=== PATIENT | female | born 1935 | race Caucasian/White ===

== ENCOUNTER 2018-03-08 14:24 | Inpatient (IN) | payer MEDICARE, MEDICAID ==
[~2018-03-08] VITALS: Ht 167.6 cm; Wt 109.1 kg
[2018-03-08 14:40] LABS: BASOPHILS % (AUTO) 0.3 % (0-1); EOSINOPHILS % (AUTO) 0.6 % (0-6); HEMATOCRIT 44.8 % (35.0-45.0); HEMOGLOBIN 15.1 g/dl (12.0-16.0); LYMPHOCYTES # (AUTO) 1.5 X10'3 (1.1-4.8); LYMPHOCYTES % (AUTO) 20.5 % (21-51); MEAN CORPUSCULAR HEMOGLOBIN 31.7 PG (27.0-31.0); MEAN CORPUSCULAR HGB CONC 33.7 % (33.0-36.5); MEAN CORPUSCULAR VOLUME 94.2 FL (78-98); MEAN PLATELET VOLUME 8.8 FL (7.4-10.4); MONOCYTES # (AUTO) 0.7 X10'3 (0-0.9); MONOCYTES % (AUTO) 8.7 % (2-12); NEUTROPHILS # (AUTO) 5.3 X10'3 (1.8-7.7); NEUTROPHILS % (AUTO) 69.9 % (42-75); PLATELET COUNT 193 X10'3 (140-440); RED BLOOD COUNT 4.75 X10'6 (4.20-5.60); RED CELL DISTRIBUTION WIDTH 15.1 % (11.5-14.5); WHITE BLOOD COUNT 7.6 X10'3 (4.5-11.0)
[2018-03-08 14:55] LABS: ALANINE AMINOTRANSFERASE 25 U/L (12-78); ALBUMIN 3.4 G/DL (3.4-5.0); ALKALINE PHOSPHATASE 81 IU/L (46-116); ANION GAP 9 (8-16); ASPARTATE AMINO TRANSFERASE 22 U/L (10-37); BILIRUBIN,TOTAL 0.5 MG/DL (0.1-1.0); BLOOD UREA NITROGEN 27 MG/DL (7-18); CHLORIDE 104 MMOL/L (99-107); CREATININE 0.93 MG/DL (0.40-0.90); GLUCOSE 133 MG/DL (70-104); MAGNESIUM 1.9 MG/DL (1.5-2.4); POTASSIUM 3.8 MMOL/L (3.5-5.1); SODIUM 141 MMOL/L (135-145); TOTAL CARBON DIOXIDE 28.4 MMOL/L (24-32); TOTAL PROTEIN 6.9 G/DL (6.4-8.2); eGFR 58 ML/MIN
[2018-03-08] MEDS ORDERED: PRAV40TA3 PO (15:21)
[2018-03-08] MEDS ORDERED: FURO20TA4 PO (15:21)
[2018-03-08] MEDS ORDERED: TRAM50TA2 PO (15:21)
[2018-03-08] MEDS ORDERED: RANI150T8 PO (15:21)
[2018-03-08] MEDS ORDERED: LISI-604 PO (15:21)
[2018-03-08] MEDS ORDERED: clopidogrel 300mg tablet PO ONE (16:50)
[2018-03-08] MEDS ORDERED: HYDROcodone/acetaminophen 10/325mg tab PO PRN (16:55)
[2018-03-08] MEDS ORDERED: HYDROcodone/acetaminophen 5mg/325mg tablet PO PRN (16:55)
[2018-03-08] MEDS: normal saline 1000ml 1,000 ML IV SCH (17:23)
[2018-03-08 17:52] LABS: CLARITY,URINE CLEAR (Clear); COLOR,URINE YELLOW (Yellow); GLUCOSE, URINE NEGATIVE (Neg); KETONES,URINE 15 mg/dl (Neg); LEUKOCYTE ESTERASE ,URINE NEGATIVE (Neg); NITRITES, URINE NEGATIVE (Neg); OCCULT BLOOD,URINE NEGATIVE (Neg); PROTEIN,URINE NEGATIVE (Neg); UROBILINOGEN,URINE 0.2 E.U/dL (0.2-1.0)
[2018-03-08 17:54] LABS: UA COLLECTION TYPE STRAIGHT CATH
[2018-03-08 17:56] LABS: HEMOGLOBIN A1C 5.5 % (4.5-6.2)
[2018-03-08 18:01] LABS: URINE AMPHETAMINE SCREEN NEGATIVE (Neg); URINE BARBITUATE SCREEN NEGATIVE (Neg); URINE BENZODIAZEPINES SCREEN NEGATIVE (Neg); URINE CANNABINOID SCREEN NEGATIVE (Neg); URINE COCAINE SCREEN NEGATIVE (Neg); URINE METHADONE SCREEN NEGATIVE (Neg); URINE OPIATE SCREEN NEGATIVE (Neg); URINE PHENCYCLIDINE SCREEN NEGATIVE (Neg)
[2018-03-08 18:05] LABS: ETHANOL < 0.010 GM/DL (0.0-0.010)
[2018-03-08 19:45] VITALS: BP 150/96
[2018-03-08] MEDS: famotidine 20mg tablet PO SCH (20:00)
[2018-03-08] MEDS ORDERED: pravastatin 40mg tablet PO SCH (21:00)
[2018-03-08 22:49] VITALS: BP 153/88
[2018-03-09 02:00] VITALS: BP 142/88
[2018-03-09 06:00] VITALS: BP 143/86
[2018-03-09] MEDS: normal saline 1000ml 1,000 ML IV SCH ×2 (06:54→21:12)
[2018-03-09 07:39] LABS: CHOL/HDL RATIO 1.8 (0.00-4.99); CHOLESTEROL 121 MG/DL (0-200); HDL CHOLESTEROL 66 MG/DL (35-60); LDL CHOLESTEROL 40 MG/DL (50-100); TRIGLYCERIDES 66 MG/DL (20-135)
[2018-03-09] MEDS: atorvastatin 20mg tablet PO SCH (08:54)
[2018-03-09] MEDS: famotidine 20mg tablet PO SCH ×2 (08:54→19:46)
[2018-03-09] MEDS: clopidogrel 75mg tablet PO SCH (08:54)
[2018-03-09 10:00] VITALS: BP 158/76
[2018-03-09 14:47] VITALS: BP 137/71
[2018-03-09 18:00] VITALS: BP 113/63
[2018-03-09] MEDS: acetaminophen 325mg tablet PO PRN (19:51)
[2018-03-09 22:00] VITALS: BP 136/85
[2018-03-10] MEDS: normal saline 1000ml 1,000 ML IV SCH ×2 (02:41→20:03)
[2018-03-10 05:00] VITALS: BP 157/81
[2018-03-10] MEDS: famotidine 20mg tablet PO SCH ×2 (09:17→19:58)
[2018-03-10] MEDS: clopidogrel 75mg tablet PO SCH (09:17)
[2018-03-10] MEDS: atorvastatin 20mg tablet PO SCH (09:18)
[2018-03-10 10:00] VITALS: BP 174/69
[2018-03-10] MEDS: lisinopril 2.5mg tablet PO SCH (17:22)
[2018-03-10 18:54] VITALS: BP 111/59
[2018-03-10] MEDS: acetaminophen 325mg tablet PO PRN (19:58)
[2018-03-10 22:00] VITALS: BP 147/75
[2018-03-11 05:00] VITALS: BP 143/76
[2018-03-11 07:04] LABS: BASOPHILS % (AUTO) 0.3 % (0-1); EOSINOPHILS # (AUTO) 0.2 X10'3 (0-0.9); EOSINOPHILS % (AUTO) 4.1 % (0-6); HEMATOCRIT 42.3 % (35.0-45.0); HEMOGLOBIN 14.4 g/dl (12.0-16.0); LYMPHOCYTES # (AUTO) 1.7 X10'3 (1.1-4.8); LYMPHOCYTES % (AUTO) 28.2 % (21-51); MEAN CORPUSCULAR HEMOGLOBIN 32.3 PG (27.0-31.0); MEAN CORPUSCULAR HGB CONC 34.2 % (33.0-36.5); MEAN CORPUSCULAR VOLUME 94.6 FL (78-98); MEAN PLATELET VOLUME 8.4 FL (7.4-10.4); MONOCYTES # (AUTO) 0.6 X10'3 (0-0.9); MONOCYTES % (AUTO) 9.8 % (2-12); NEUTROPHILS # (AUTO) 3.4 X10'3 (1.8-7.7); NEUTROPHILS % (AUTO) 57.6 % (42-75); PLATELET COUNT 181 X10'3 (140-440); RED BLOOD COUNT 4.47 X10'6 (4.20-5.60); RED CELL DISTRIBUTION WIDTH 15.5 % (11.5-14.5); WHITE BLOOD COUNT 5.9 X10'3 (4.5-11.0)
[2018-03-11 07:13] LABS: ALANINE AMINOTRANSFERASE 21 U/L (12-78); ALKALINE PHOSPHATASE 76 IU/L (46-116); ANION GAP 6 (8-16); ASPARTATE AMINO TRANSFERASE 20 U/L (10-37); BILIRUBIN,TOTAL 0.4 MG/DL (0.1-1.0); BLOOD UREA NITROGEN 18 MG/DL (7-18); BUN/CREATININE RATIO 20.7 (6.6-38.0); CALCIUM 8.6 MG/DL (8.5-10.1); CHLORIDE 108 MMOL/L (99-107); CREATININE 0.87 MG/DL (0.40-0.90); GLUCOSE 97 MG/DL (70-104); POTASSIUM 4.2 MMOL/L (3.5-5.1); SODIUM 143 MMOL/L (135-145); TOTAL CARBON DIOXIDE 29.3 MMOL/L (24-32); TOTAL PROTEIN 6.1 G/DL (6.4-8.2); eGFR 62 ML/MIN
[2018-03-11] MEDS: famotidine 20mg tablet PO SCH ×2 (08:40→19:30)
[2018-03-11] MEDS: lisinopril 2.5mg tablet PO SCH (08:40)
[2018-03-11] MEDS: atorvastatin 20mg tablet PO SCH (08:40)
[2018-03-11] MEDS: clopidogrel 75mg tablet PO SCH (08:40)
[2018-03-11 10:00] VITALS: BP 122/70
[2018-03-11 18:30] VITALS: BP 96/42
[2018-03-11] MEDS: acetaminophen 325mg tablet PO PRN (19:58)
[2018-03-11 22:00] VITALS: BP 127/62
[2018-03-12 06:00] VITALS: BP 116/71
[2018-03-12] MEDS: famotidine 20mg tablet PO SCH (07:35)
[2018-03-12] MEDS: atorvastatin 20mg tablet PO SCH (07:35)
[2018-03-12] MEDS: clopidogrel 75mg tablet PO SCH (07:35)
[2018-03-12] MEDS: lisinopril 2.5mg tablet PO SCH (07:36)
[2018-03-12 10:00] VITALS: BP 143/76
== END 2018-03-12 13:20 | DRG 64 ==
LOC: ER 14:24 → ED HOLD 16:36 → EDBEDREQ 18:33 → ORTHO 4S 19:40
PROVIDERS: ADMIT Legal Medicine; ATTEND Family Medicine
DX: I63.9 Cerebral infarction, unspecified (principal); G93.40 Encephalopathy, unspecified; N17.0 Acute kidney failure with tubular necrosis; F03.90 Unspecified dementia, unspecified severity, without behavioral disturbance, psychotic disturbance, mood disturbance, and anxiety; E66.9 Obesity, unspecified; I10 Essential (primary) hypertension; I25.10 Atherosclerotic heart disease of native coronary artery without angina pectoris; H35.30 Unspecified macular degeneration; H40.9 Unspecified glaucoma; H91.90 Unspecified hearing loss, unspecified ear; M19.90 Unspecified osteoarthritis, unspecified site; Z66 Do not resuscitate; Z96.659 Presence of unspecified artificial knee joint; I25.2 Old myocardial infarction; Z88.5 Allergy status to narcotic agent; Z88.8 Allergy status to other drugs, medicaments and biological substances; Z79.899 Other long term (current) drug therapy; Z68.38 Body mass index [BMI] 38.0-38.9, adult
CPT/HCPCS: 36415; 70450; 70544; 70551; 71045; 80053; 80061; 80305; 80320; 81003; 82140; 82607; 82948; 83036; 83735; 83880; 84443; 85025; 86885; 86900; 86901; 87070; 92616; 93005; 93306; 93880; 97110; 97116; 97162; 97530; 99285; J7030